=== PATIENT | male | born 1975 | race African-American/Black ===

== ENCOUNTER 2017-03-28 18:45 | Emergency (ER) | payer OTHER ==
[2017-03-28 18:56] VITALS: BP 154/98; PULSE 85; TEMP 98.4; BMI 41.1
--- NOTE | 2017-03-28 19:18 | PDOC ---
History of Present Illness - History of Present Illness Initial Comments: 03/28/17 19:19 The patient is a 42 year old male, with no significant past medical history, who presents to the emergency department with a superficial laceration to the top of his head sustained while walking up the stairs of his basement and misjudging the ceiling height about 15 minutes prior to ED arrival. He states he noticed a significant amount of blood after the injury and immediately applied pressure with a towel. He denies loss of consciousness. He reports a mild headache, but denies dizziness. The patient denies any other complaints at this time. He denies chest pain, shortness of breath, and dizziness. He denies fever, chills, nausea, vomit, diarrhea and constipation. He denies dysuria, frequency, urgency and hematuria. Allergies: penicillins PCP - Dr. Kasandra Medina <Dana Yadav - Last Filed: 03/28/17 19:27> <Ge Campbell - Last Filed: 03/29/17 04:06> - General Chief Complaint: Injury Stated Complaint: HEAD INJURY, ABRASION, LAC Time Seen by Provider: 03/28/17 19:18 Past History <Dana Yadav - Last Filed: 03/28/17 19:27> - Past Medical History Disorders: Yes (urinary problems) - Psycho/Social/Smoking Cessation Hx Anxiety: No Suicidal Ideation: No Smoking History: Never smoked Have you smoked in the past 12 months: Yes Number of Cigarettes Smoked Daily: 2 Information on smoking cessation initiated: No Hx Alcohol Use: No Drug/Substance Use Hx: No Substance Use Type: None <Ge Campbell - Last Filed: 03/29/17 04:06> - Past Medical History Allergies/Adverse Reactions: Allergies Allergy/AdvReac Type Severity Reaction Status Date / Time Penicillins Allergy Unknown Verified 03/28/17 18:46 Home Medications: Ambulatory Orders Pill For Urinary Frequency 03/28/17 Review of Systems - Review of Systems Able to Perform ROS?: Yes Comments:: 03/28/17 19:20 CONSTITUTIONAL: Absent: fever, chills, diaphoresis, generalized weakness, malaise, loss of appetite HEENT: Absent: rhinorrhea, nasal congestion, throat pain, throat swelling, difficulty swallowing, mouth swelling, ear pain, eye pain, visual Changes CARDIOVASCULAR: Absent: chest pain, syncope, palpitations, irregular heart rate, lightheadedness , peripheral edema RESPIRATORY: Absent: cough, shortness of breath, dyspnea with exertion, orthopnea, wheezing, stridor, hemoptysis GASTROINTESTINAL: Absent: abdominal pain, abdominal distension, nausea, vomiting, diarrhea, constipation, melena, hematochezia GENITOURINARY: Absent: dysuria, frequency, urgency, hesitancy, hematuria, flank pain, genital pain MUSCULOSKELETAL: Absent: myalgia, arthralgia, joint swelling SKIN: (+) superficial laceration to superior scalp. Absent: rash, itching, pallor HEMATOLOGIC/IMMUNOLOGIC: Absent: easy bleeding, easy bruising, lymphadenopathy, frequent infections ENDOCRINE: Absent: unexplained weight gain, unexplained weight loss, heat intolerance, cold intolerance NEUROLOGIC: (+) headache,Absent: focal weakness or paresthesias, dizziness, unsteady gait, seizure, mental status changes, bladder or bowel incontinence PSYCHIATRIC: Absent: anxiety, depression, suicidal or homicidal ideation, hallucinations. <Dana Yadav - Last Filed: 03/28/17 19:27> *Physical Exam - Vital Signs Last Vital Signs Temp Pulse Resp BP Pulse Ox 98.4 F 85 16 154/98 95 03/28/17 18:45 03/28/17 18:45 03/28/17 18:45 03/28/17 18:45 03/28/17 18:45 - Physical Exam Comments: 03/28/17 19:21 GENERAL: Well developed, well nourished. Awake and alert. No acute distress. HEENT: (+) superficial lacration to superior scalp. Normocephalic, PERRLA, EOMI. No conjunctival pallor. Sclera are non-icteric. Moist mucous membranes. Oropharynx is clear. NECK: Supple. Full ROM. No JVD. Carotid pulses 2+ and symmetric, without bruits. No thyromegaly. No lymphadenopathy. CARDIOVASCULAR: Regular rate and rhythm. No murmurs, rubs, or gallops. Distal pulses are 2+ and symmetric. PULMONARY: No evidence of respiratory distress. Lungs clear to auscultation bilaterally. No wheezing, rales or rhonchi ABDOMINAL: Soft. Non-tender. Non-distended. No rebound or guarding. No organomegaly. Normoactive bowel sounds. MUSCULOSKELETAL Normal range of motion at all joints. No bony deformities or tenderness. No CVA tenderness. EXTREMITIES: No cyanosis. No clubbing. No edema. No calf tenderness. SKIN: (+) superficial lacration to superior scalp. Warm and dry. Normal capillary refill. No rashes. No jaundice. NEUROLOGICAL: Alert, awake, appropriate. Cranial nerves 2-12 intact. No deficits to light touch and temperature in face, upper extremities and lower extremities. No motor deficits in the in face, upper extremities and lower extremities. Normoreflexic in the upper and lower extremities. Normal speech. Toes are down- going bilaterally. Gait is normal without ataxia. PSYCHIATRIC: Cooperative. Good eye contact. Appropriate mood and affect. <Dana Yadav - Last Filed: 03/28/17 19:27> - Vital Signs Last Vital Signs Temp Pulse Resp BP Pulse Ox 98.4 F 85 16 154/98 95 03/28/17 18:45 03/28/17 18:45 03/28/17 18:45 03/28/17 18:45 03/28/17 18:45 <Ge Campbell - Last Filed: 03/29/17 04:06> Procedures - Laceration/Wound Repair Posterior Head Wound Length: to 2.5 cm Wound Explored: clean, no foreign body present Wound's Depth, Shape: superficial, linear Anesthesia: 1% Lidocaine Wound Repaired With: Sutures Suture Size/Type: 5:0, nylon Number of Sutures: 4 <Dana Yadav - Last Filed: 03/28/17 19:27> Medical Decision Making - Medical Decision Making 03/29/17 04:06 minor head trauma--cleared by [place] [employer] lac repaired tetanus utd <Ge Campbell - Last Filed: 03/29/17 04:06> *DC/Admit/Observation/Transfer - Attestations Scribe Attestion: 03/28/17 19:22 Documentation prepared by Dana Yadav, acting as medical grade shoemaker for Ge Campbell MD <Dana Yadav - Last Filed: 03/28/17 19:27> <Ge Campbell - Last Filed: 03/29/17 04:06> Diagnosis at time of Disposition: Laceration Head trauma Qualifiers: Encounter type: initial encounter Qualified Code(s): S09.90XA - Unspecified injury of head, initial encounter - Discharge Dispostion Disposition: HOME Condition at time of disposition: Stable - Referrals Referrals: Kasandra Medina [Primary Care Provider] - 2 Days - Patient Instructions Printed Discharge Instructions: DI for Suture Removal, DI for Closed Head Injury Additional Instructions: stitches out--1 week - Post Discharge Activity Work/School Note: Back to Work
== END 2017-03-28 20:10 | disposition home or self-care (01) ==
LOC: FER 18:45
PROC: 0HQ0XZZ Repair Scalp Skin, External Approach (ICD-10-PCS; principal; 2017-03-28)
DX: S01.01XA Laceration without foreign body of scalp, initial encounter (principal); S09.90XA Unspecified injury of head, initial encounter; W22.01XA Walked into wall, initial encounter; Y93.89 Activity, other specified; Y92.9 Unspecified place or not applicable
CPT/HCPCS: 99283-25

== ENCOUNTER 2019-04-13 18:53 | Emergency (ER) | payer OTHER ==
[2019-04-13] MEDS ORDERED: DIPHTH,PERTUSS(ACELL),TET 0.5 ML DISP.SYRIN IM ONE ×2 (18:56→19:04)
[2019-04-13 19:01] VITALS: BP 148/89; PULSE 87; TEMP 99; BMI 42.3
--- NOTE | 2019-04-13 19:01 | PDOC ---
Documentation entered by Danielle Black SCRIBE, acting as scribe for Ash Ballard MD. Ash Ballard MD: This documentation has been prepared by the Wayne yee Collisia, SCRIBE, under my direction and personally reviewed by me in its entirety. I confirm that the documentation accurately reflects all work, treatment, procedures, and medical decision making performed by me. History of Present Illness - General Chief Complaint: Injury Stated Complaint: STEPPED ON A NAIL History Source: Patient Exam Limitations: No Limitations - History of Present Illness Initial Comments: 04/13/19 18:55 The patient is a 44 year old male with no significant past medical history who presents to the emergency department with a right foot injury since yesterday. The patient states that he was at home yesterday when he accidentally stepped on a mireille nail through his boot. He denies any weakness or tingling sensations. He denies any fever, chills, nausea, vomiting, diarrhea, constipation or urinary symptoms. He states that his last tetanus shot was greater than 10 years ago. He endorses a penicillin allergy and denies any other complaints. Past History - Past Medical History Allergies/Adverse Reactions: Allergies Allergy/AdvReac Type Severity Reaction Status Date / Time Penicillins Allergy Unknown Verified 04/13/19 18:55 Home Medications: Ambulatory Orders Levofloxacin [Levaquin] 750 mg PO DAILY #6 tablet 04/13/19 Disorders: Yes (urinary problems) - Suicide/Smoking/Psychosocial Hx Smoking History: Never smoked Have you smoked in the past 12 months: Yes Number of Cigarettes Smoked Daily: 2 Hx Alcohol Use: No Drug/Substance Use Hx: No Substance Use Type: None Review of Systems - Review of Systems Able to Perform ROS?: Yes Comments:: 04/13/19 19:01 GENERAL/CONSTITUTIONAL: No fever or chills. No weakness. HEAD, EYES, EARS, NOSE AND THROAT: No change in vision. No ear pain or discharge. No sore throat. CARDIOVASCULAR: No chest pain or shortness of breath. RESPIRATORY: No cough, wheezing, or hemoptysis. GASTROINTESTINAL: No nausea, vomiting, diarrhea or constipation. GENITOURINARY: No dysuria, frequency, or change in urination. MUSCULOSKELETAL: (+)right foot puncture wound. No joint or muscle swelling or pain. No neck or back pain. SKIN: No rash NEUROLOGIC: No headache, vertigo, loss of consciousness, or change in strength/ sensation. ENDOCRINE: No increased thirst. No abnormal weight change. HEMATOLOGIC/LYMPHATIC: No anemia, easy bleeding, or history of blood clots. ALLERGIC/IMMUNOLOGIC: No hives or skin allergy. *Physical Exam - Physical Exam Comments: 04/13/19 19:01 GENERAL: Awake, alert, and fully oriented, in no acute distress HEAD: No signs of trauma LUNGS: Breath sounds equal, clear to auscultation bilaterally. No wheezes, and no crackles HEART: Regular rate and rhythm, normal S1 and S2, no murmurs, rubs or gallops ABDOMEN: Soft, nontender, normoactive bowel sounds. No guarding, no rebound. No masses EXTREMITIES: (+)right foot has a healed puncture wound to right plantar foot. No sign of infection. No drainage. Normal range of motion, no edema. No clubbing or cyanosis. No cords, erythema, or tenderness to palpation. NEUROLOGICAL: Cranial nerves II through XII grossly intact. Normal speech, normal gait SKIN: Warm, Dry, normal turgor, no rashes or lesions noted. Medical Decision Making - Medical Decision Making 04/13/19 19:00 A portion of this note was documented by scribe services under my direction. I have reviewed the details of the note, within reason, and agree with the documentation with the following case summary and management plan written by me. Patient treated in the ED. Nursing notes are reviewed and incorporated into the medical decision-making. Vital signs reviewed. 44-year-old male with history of obesity presents with puncture wound of the right foot. Patient was wearing a boot when a mireille nail has stopped on his right foot to the plantar surface. It is currently without any symptoms but patient is concerned as he has not had tetanus in over 10 years. No fevers or chills. Denies pain or numbness. Patient is neurovascular intact. Tetanus booster was ordered. Given that this is a nail wound, we'll prescribe prophylaxis with Levaquin. I did instruct the patient that occasionally despite taking the prophylaxis the patient may develop a foot wound or infection. If he notices symptoms such as fever, pus, redness or severe uncontrollable pain, the patient should return to the ER for IV antibiotics. The patient verbalizes understand agrees with plan. *DC/Admit/Observation/Transfer Diagnosis at time of Disposition: Puncture wound - Discharge Dispostion Disposition: HOME Condition at time of disposition: Good Decision to Admit order: No - Prescriptions Prescriptions: Levofloxacin [Levaquin] 750 mg PO DAILY #6 tablet - Referrals Referrals: Kasandra Medina [Primary Care Provider] - - Patient Instructions Additional Instructions: You have been treated for a nail puncture to your foot. You have received a tetanus booster in the ER. You have received the first dose of antibiotics (levaquin) here in the ER. Please finish the course of your antibiotics as prescribed. Complete the course. You may take 650 mg tylenol every 4 hours as needed for pain. Elevate the leg as much as you can to decrease swelling. If you notice any fever, uncontrollable pain, redness, pus at the foot, this may indicate that you may need IV antibiotics so please return to the ER. Please feel better. - Post Discharge Activity
== END 2019-04-13 19:16 | disposition home or self-care (01) ==
LOC: FER 18:53
PROC: 3E0234Z Introduction of Serum, Toxoid and Vaccine into Muscle, Percutaneous Approach (ICD-10-PCS; principal; 2019-04-13)
DX: S91.331A Puncture wound without foreign body, right foot, initial encounter (principal); W45.0XXA Nail entering through skin, initial encounter; Y93.89 Activity, other specified; Y92.89 Other specified places as the place of occurrence of the external cause; Z88.0 Allergy status to penicillin
CPT/HCPCS: 90715; 99282-25

== ENCOUNTER 2019-04-21 00:50 | Emergency (ER) | payer SELFPAY ==
[2019-04-21 01:04] VITALS: BP 158/106; PULSE 79; TEMP 98.2; BMI 42.4
--- NOTE | 2019-04-21 01:13 | PDOC ---
History of Present Illness - General Chief Complaint: Toothache Stated Complaint: FACIAL/DENTAL PAIN Time Seen by Provider: 04/21/19 00:59 History Source: Patient Exam Limitations: No Limitations - History of Present Illness Initial Comments: 04/21/19 01:13 This is a 44-year-old male who comes in complaining of dental pain radiating to his jaw and into his ear. Patient is concerned that there may be something else going on other than the doctor. So comes in for evaluation. Patient denies any fevers or chills. Patient took Motrin and Tylenol for the pain without relief. Patient is otherwise healthy and denies any complaints. He denies any fevers or chills. Allergies: as per nursing notes Past Medical History: none Social history: Lives with family. No smoking. No alcohol. No illicit drugs. Surgical history: None General: No fevers or chills, no weakness, no weight loss HEENT: No change in vision. No sore throat,. No ear pain, dental pain as per history of present illness CardioVascular: no chest discomfort. No shortness of breath Respiratory:No cough, or wheezing. Gastrointestinal: no nausea, vomiting, diarrhea or constipation, No rectal bleeding Genitourinary: No dysuria, hematuria, or frequency Musculoskeletal: No joint or muscle pain or swelling Neurologic: No headache, vertigo, dizziness or loss of consciousness Psychiatric: nor depression Skin: No rashes or easy bruising Endocrine: no increased thirst or abnormal weight change Allergic: no skin or latex allergy All other systems reviewed and normal GENERAL: The patient is awake, alert, and fully oriented, in no acute distress. HEAD: Normal with no signs of trauma. Mouth: There is a obvious carry of the first molar on the right-hand side lower teeth. There is tenderness on palpation of the periodontal tissues of the tooth. Ears tympanic membranes are normal bilateral Neck: Throat there is no erythema of the posterior oropharynx is no submandibular lymphadenopathy. EYES: Pupils equal, round and reactive to light, extraocular movements intact, sclera anicteric, conjunctiva clear. EXTREMITIES:atraumatic, Normal range of motion, no edema. NEUROLOGICAL: Normal speech, normal gait. PSYCH: Normal mood, normal affect. SKIN: Warm, Dry, normal turgor, no rashes or lesions noted. Assessment and plan: This is a 44-year-old male with dental pain. Patient given Toradol for the pain and told to see his dentist in the morning. Past History - Past Medical History Allergies/Adverse Reactions: Allergies Allergy/AdvReac Type Severity Reaction Status Date / Time Penicillins Allergy Unknown Verified 04/13/19 18:55 Home Medications: Ambulatory Orders NK [No Known Home Medication] 04/21/19 COPD: No Disorders: Yes (urinary problems) - Suicide/Smoking/Psychosocial Hx Smoking History: Never smoked Have you smoked in the past 12 months: Yes Number of Cigarettes Smoked Daily: 2 Hx Alcohol Use: No Drug/Substance Use Hx: No Substance Use Type: None *Physical Exam - Vital Signs Last Vital Signs Temp Pulse Resp BP Pulse Ox 98.2 F 79 16 158/106 H 99 04/21/19 00:54 04/21/19 00:54 04/21/19 00:54 04/21/19 00:54 04/21/19 00:54 *DC/Admit/Observation/Transfer Diagnosis at time of Disposition: Pain, dental - Discharge Dispostion Disposition: HOME Condition at time of disposition: Stable Decision to Admit order: No - Referrals Referrals: Kasandra Medina [Primary Care Provider] - - Patient Instructions Printed Discharge Instructions: DI for Dental Pain Additional Instructions: You were given a shot of some medication that will last him until the morning. Call your dentist in the morning and get your dentist to evaluate that tooth. Return to the emergency department immediately with ANY new, persistent or worsening symptoms. Continue any medications as previously prescribed by your physician. You should follow up with your primary doctor as soon as possible regarding today's emergency department visit. . Please make sure your doctor reviews the results of your emergency evaluation. Thank you for coming to the Emergency Department today for your care. It was a pleasure to see you today. Please note that your evaluation is INCOMPLETE until you follow-up with your doctor. - Post Discharge Activity
[2019-04-21] MEDS ORDERED: KETOROLAC TROMETHAMINE 60 MG/2 ML VIAL ONE (01:15)
[2019-04-21] MEDS ORDERED: KETOROLAC TROMETHAMINE 60 MG/2 ML VIAL IM ONE (01:16)
== END 2019-04-21 01:25 | disposition home or self-care (01) ==
LOC: FER 00:50
PROC: 3E0233Z Introduction of Anti-inflammatory into Muscle, Percutaneous Approach (ICD-10-PCS; principal; 2019-04-21)
DX: K08.89 Other specified disorders of teeth and supporting structures (principal); Z87.891 Personal history of nicotine dependence
CPT/HCPCS: 99282-25

== ENCOUNTER 2019-11-16 18:55 | Emergency (ER) | payer SELFPAY ==
[2019-11-16] MEDS ORDERED: ACETAMINOPHEN 500 MG TABLET (FP) ONE (19:18)
[2019-11-16 19:20] VITALS: BP 142/86; PULSE 95; TEMP 103; BMI 39.5
[2019-11-16] MEDS ORDERED: ACETAMINOPHEN 500 MG TABLET (FP) PO ONE (19:48)
--- NOTE | 2019-11-17 00:58 | PDOC ---
Documentation entered by Rocio Sol SCRIBE, acting as scribe for Rubi Schwartz MD. Rubi Schwartz MD: This documentation has been prepared by the willibeEbenezer Maria, SCRIBE, under my direction and personally reviewed by me in its entirety. I confirm that the documentation accurately reflects all work, treatment, procedures, and medical decision making performed by me. History of Present Illness - General Chief Complaint: Cold Symptoms Stated Complaint: EVERYTHING HURTS Time Seen by Provider: 11/16/19 19:12 - History of Present Illness Initial Comments: 11/16/19 19:55 Patient is a 44 year old male with no significant PMH who presents to the emergency department with body aches, fever and chills. Pt states he has 2 daughters at home with the flu. He reports taking ibuprofen for the pain with no alleviation of symptoms prompting him to the ER. He denies any recent nausea, vomiting, diarrhea or constipation. He denies any recent chest pain or shortness of breath. He denies any recent dysuria, frequency, urgency or hematuria. Allergies: NKDA Past surgical history:Right arthroscopic shoulder surgery Social History: Daily smoker, 3 cigarettes a day. Denies EtOH use and recreational drug use. Past History - Past Medical History Allergies/Adverse Reactions: Allergies Allergy/AdvReac Type Severity Reaction Status Date / Time Penicillins Allergy Unknown Rash Verified 11/16/19 18:57 Home Medications: Ambulatory Orders Ibuprofen 600 mg PO PRN PRN 11/16/19 COPD: No Disorders: Yes (urinary problems) - Psycho Social/Smoking Cessation Hx Smoking History: Current some day smoker Have you smoked in the past 12 months: Yes Number of Cigarettes Smoked Daily: 2 Information on smoking cessation initiated: Yes Hx Alcohol Use: No Drug/Substance Use Hx: No Substance Use Type: None Review of Systems - Review of Systems Able to Perform ROS?: Yes Comments:: 11/16/19 19:55 CONSTITUTIONAL:+fever.+chills.+generalized weakness. Absent: diaphoresis, malaise, loss of appetite HEENT: Absent: rhinorrhea, nasal congestion, throat pain, throat swelling, difficulty swallowing, mouth swelling, ear pain, eye pain, visual Changes CARDIOVASCULAR: Absent: chest pain, syncope, palpitations, irregular heart rate, lightheadedness , peripheral edema RESPIRATORY: Absent: cough, shortness of breath, dyspnea with exertion, orthopnea, wheezing, stridor, hemoptysis GASTROINTESTINAL: Absent: abdominal pain, abdominal distension, nausea, vomiting, diarrhea, constipation, melena, hematochezia GENITOURINARY: Absent: dysuria, frequency, urgency, hesitancy, hematuria, flank pain, genital pain MUSCULOSKELETAL: Absent: myalgia, arthralgia, joint swelling SKIN: Absent: rash, itching, pallor HEMATOLOGIC/IMMUNOLOGIC: Absent: easy bleeding, easy bruising, lymphadenopathy, frequent infections ENDOCRINE: Absent: unexplained weight gain, unexplained weight loss, heat intolerance, cold intolerance NEUROLOGIC: Absent: headache, focal weakness or paresthesias, dizziness, unsteady gait, seizure, mental status changes, bladder or bowel incontinence PSYCHIATRIC: Absent: anxiety, depression, suicidal or homicidal ideation, hallucinations. *Physical Exam - Vital Signs Last Vital Signs Temp Pulse Resp BP Pulse Ox 103 F H 95 H 20 142/86 100 11/16/19 18:56 11/16/19 18:56 11/16/19 18:56 11/16/19 18:56 11/16/19 18:56 - Physical Exam 11/16/19 19:55 GENERAL: Well developed, well nourished. Awake and alert. No acute distress. HEENT:+dry mouth. Normocephalic, atraumatic. PERRLA, EOMI. No conjunctival pallor. Sclera are non- icteric. Moist mucous membranes. Oropharynx is clear. NECK: Supple. Full ROM. No JVD. Carotid pulses 2+ and symmetric, without bruits. No thyromegaly. No lymphadenopathy. CARDIOVASCULAR: Regular rate and rhythm. No murmurs, rubs, or gallops. Distal pulses are 2+ and symmetric. PULMONARY: No evidence of respiratory distress. Lungs clear to auscultation bilaterally. No wheezing, rales or rhonchi. ABDOMINAL: Soft. Non-tender. Non-distended. No rebound or guarding. No organomegaly. Normoactive bowel sounds. MUSCULOSKELETAL Normal range of motion at all joints. No bony deformities or tenderness. No CVA tenderness. EXTREMITIES: No cyanosis. No clubbing. No edema. No calf tenderness. SKIN: Warm and dry. Normal capillary refill. No rashes. No jaundice. NEUROLOGICAL: Alert, awake, appropriate. Cranial nerves 2-12 intact. No deficits to light touch and temperature in face, upper extremities and lower extremities. No motor deficits in the in face, upper extremities and lower extremities. Normoreflexic in the upper and lower extremities. Normal speech. Toes are down- going bilaterally. Gait is normal without ataxia. PSYCHIATRIC: Cooperative. Good eye contact. Appropriate mood and affect. Medical Decision Making - Medical Decision Making As noted above, this 44-year-old man presents with 1 day history of progressive myalgias, fever, malaise, nonproductive cough. Of note, family members reportedly have "the flu" (2 daughters). Patient last took Motrin at least 10 hours prior to presentation. He states that he is able to drink fluids without difficulty in swallowing or with nausea/vomiting. No history of diarrhea reported. Exam as noted with presentation fever of 103 F. Although the patient appears somewhat dehydrated (dry mucous membranes) he has no other significant findings on exam. Clinical presentation most consistent with viral syndrome, possibly influenza. Patient given 1 g acetaminophen by mouth for his fever. In light of patient's otherwise good health and low risk for severe manifestations of influenza, no antiviral medication given. 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 He should monitor his temperature and treat his fever promptly. If he develops severe cough/shortness of breath or vomiting/diarrhea , he should return to the ER Discharge - Discharge Information Problems reviewed: Yes Clinical Impression/Diagnosis: Viral syndrome Condition: Stable Disposition: HOME - Follow up/Referral - Patient Discharge Instructions Patient Printed Discharge Instructions: DI for Viral Syndrome Additional Instructions: rest; drink plenty of fluids Alternate Tylenol with Motrin as needed for fever and body aches Return to ER if you have vomiting/diarrhea/persistent high fever/shortness of breath Follow-up with your doctor within the next week - Post Discharge Activity
== END 2019-11-16 19:55 | disposition home or self-care (01) ==
LOC: FER 18:55
DX: B34.9 Viral infection, unspecified (principal); Z88.0 Allergy status to penicillin; F17.210 Nicotine dependence, cigarettes, uncomplicated
CPT/HCPCS: 99282-25

== ENCOUNTER 2020-06-21 20:30 | Emergency (ER) | payer OTHER ==
[2020-06-21 20:53] VITALS: BP 151/98; PULSE 76; TEMP 98.3; BMI 41.1
--- NOTE | 2020-06-21 21:57 | PDOC ---
Documentation entered by Reynaldo Mojica SCRIBE, acting as scribe for Benjie Hoang MD. Benjie Hoang MD: This documentation has been prepared by the Galina yee Angel, SCRIBE, under my direction and personally reviewed by me in its entirety. I confirm that the documentation accurately reflects all work, treatment, procedures, and medical decision making performed by me. History of Present Illness - General Chief Complaint: Injury Stated Complaint: LT 2ND FINGER INJURY Time Seen by Provider: 06/21/20 20:52 History Source: Patient Exam Limitations: No Limitations - History of Present Illness Initial Comments: 06/21/20 21:16 The patient is a 45 year old male with no significant past medical history who presents to the ED with injury to his index finger on his left hand. The patient states he was drilling a hole and his finger got hit by the drill bit breaking his nail. The patient states the wound was bleeding at the time of the incident but is not currently here in the ED. The patient has no other complaints here in the ED. Past History - Medical History Allergies/Adverse Reactions: Allergies Allergy/AdvReac Type Severity Reaction Status Date / Time Penicillins Allergy Unknown Rash Verified 11/16/19 18:57 Home Medications: Ambulatory Orders Ibuprofen 600 mg PO PRN PRN 11/16/19 Lisinopril 20 mg PO DAILY 06/21/20 Multivitamin 1 each PO DAILY 06/21/20 COPD: No Disorders: Yes (urinary problems) HTN: Yes - Immunization History Immunization Up to Date: Yes - Psycho-Social/Smoking History Smoking History: Never smoked Have you smoked in the past 12 months: Yes Number of Cigarettes Smoked Daily: 2 Review of Systems - Review of Systems Able to Perform ROS?: Yes Comments:: 06/21/20 21:37 GENERAL/CONSTITUTIONAL: No fever or chills. No weakness. HEAD, EYES, EARS, NOSE AND THROAT: No change in vision. No ear pain or discharge. No sore throat. CARDIOVASCULAR: No chest pain, no shortness of breath, no loss of consciousness RESPIRATORY: No cough, wheezing, or hemoptysis. GASTROINTESTINAL: No nausea, vomiting, diarrhea or constipation. GENITOURINARY: No dysuria, frequency, or change in urination. MUSCULOSKELETAL: + L Index finger injury, No neck or back pain. SKIN: No rash NEUROLOGIC: No vertigo, no change in strength/sensation. ENDOCRINE: No increased thirst. No abnormal weight change. HEMATOLOGIC/LYMPHATIC: No anemia, easy bleeding, or history of blood clots. ALLERGIC/IMMUNOLOGIC: No hives or skin allergy. *Physical Exam - Vital Signs Last Vital Signs Temp Pulse Resp BP Pulse Ox 98.3 F 76 18 151/98 99 06/21/20 20:48 06/21/20 20:48 06/21/20 20:48 06/21/20 20:48 06/21/20 20:48 - Physical Exam 06/21/20 21:58 "GENERAL: Awake, alert, and fully oriented, in no acute distress. HEAD: No signs of trauma EYES: PERRLA, EOMI, sclera anicteric, conjunctiva clear ENT: Auricles normal inspection, hearing grossly normal, nares patent, oropharynx clear without exudates. Moist mucosa NECK: Nontender, no stepoffs, Normal ROM, supple, no lymphadenopathy, JVD, or masses LUNGS: Breath sounds equal, clear to auscultation bilaterally. No wheezes, and no crackles HEART: Regular rate and rhythm, normal S1 and S2, no murmurs, rubs or gallops ABDOMEN: Soft, nontender, normoactive bowel sounds. No guarding, no rebound. No masses EXTREMITIES: + L 2nd digit with partial fingernail avulsion, no subungual hematoma, no skin laceration, Normal range of motion, no edema. No clubbing or cyanosis. No cords, erythema, or tenderness NEUROLOGICAL: Cranial nerves II through XII intact. 5/5 strength and sensation in all extremities, Normal speech, normal gait, normal cerebellar function SKIN: Warm, Dry, normal turgor, no rashes or lesions noted. Medical Decision Making - Medical Decision Making 06/21/20 21:59 45 M with L 2nd digit fingernail injury. - Dermabond applied to nail flap - Abx ppx Pt is well appearing, with normal vitals. Clinically stable for DC at this time. I discussed the physical exam findings, ancillary test results and final diagnos es with the patient. I answered all of the patient's questions. The patient was satisfied with the care received and felt comfortable with the discharge plan and treatment plan. The patient agrees to follow up with the primary care physician within 24-72 hours. Discharge - Discharge Information Problems reviewed: Yes Clinical Impression/Diagnosis: Fingernail injury Condition: Stable Disposition: HOME - Follow up/Referral - Patient Discharge Instructions Patient Printed Discharge Instructions: DI for Nail Avulsion Injury Additional Instructions: Take the antibiotics as prescribed to prevent your finger from getting infected. If you experience any redness, swelling, pain, or any other concerning symptoms, return to the ER immediately. - Post Discharge Activity
== END 2020-06-21 22:08 | disposition home or self-care (01) ==
LOC: FER 20:30
DX: S61.211A Laceration without foreign body of left index finger without damage to nail, initial encounter (principal)
CPT/HCPCS: 99282-25

== ENCOUNTER 2021-12-22 20:45 | Emergency (ER) | payer OTHER ==
[2021-12-22 21:03] VITALS: BP 152/96; PULSE 81; TEMP 98.6; BMI 41.7
[2021-12-22] MEDS ORDERED: CIPROFLOXACIN HCL 0.3% OPHTH 2.5ML BOTTLE ONE (21:12)
[2021-12-22] MEDS ORDERED: DIPHTH,PERTUSS(ACELL),TET 0.5 ML DISP.SYRIN IM ONE ×2 (21:17→21:54)
[2021-12-22] MEDS ORDERED: FLUORESCEIN NA 1 EA STRIP ONE (21:48)
[2021-12-22] MEDS ORDERED: TETRACAINE 0.5% OPHTH SOLN 2 ML BOTTLE ONE (21:49)
== END 2021-12-22 22:00 | disposition home or self-care (01) ==
LOC: FER 20:45
PROC: 3E0234Z Introduction of Serum, Toxoid and Vaccine into Muscle, Percutaneous Approach (ICD-10-PCS; principal; 2021-12-22)
DX: S05.01XA Injury of conjunctiva and corneal abrasion without foreign body, right eye, initial encounter (principal); W25.XXXA Contact with sharp glass, initial encounter
CPT/HCPCS: 90471; 99284-25

== ENCOUNTER 2024-05-16 22:35 | Emergency (ER) | payer OTHER ==
[2024-05-16 23:01] VITALS: BP 161/104; PULSE 76; RESP 16; TEMP 98.8; BMI 39.1
== END 2024-05-16 23:41 | disposition home or self-care (01) ==
LOC: FER 22:35
PROC: 0XQMXZZ Repair Left Thumb, External Approach (ICD-10-PCS; principal; 2024-05-16)
DX: S61.012A Laceration without foreign body of left thumb without damage to nail, initial encounter (principal); W26.0XXA Contact with knife, initial encounter
CPT/HCPCS: 99283-25